=== PATIENT | male | born 2000 | race Caucasian/White ===

== ENCOUNTER 2024-08-07 16:43 | Emergency (ER) | payer OTHER, SELFPAY ==
[2024-08-07 17:10] VITALS: BP 156/88; PULSE 124; O2SAT 99
[2024-08-07 17:27] VITALS: BP 129/76; PULSE 111; RESP 18; TEMP 37.1; O2SAT 96; BMI 20.8
[2024-08-07 17:43] VITALS: RESP 18
--- NOTE | 2024-08-07 17:58 | ED.GENADULT ---
HPI - General Adult General Chief complaint: Psychiatric Symptoms Stated complaint: CRISIS EVAL, DELUSIONS, PARANOIA PER EMS Time Seen by Provider: 08/07/24 17:14 Source: patient, RN notes reviewed and old records reviewed Mode of arrival: EMS Limitations: no limitations History of Present Illness ED Provider: Mireille KHOURY narrative: 24-year-old male who denies any past medical history presents for evaluation of psychosis Patient reports that he took some THC edibles from a friend that he recently met. The patient states this was 3 days ago when he took the edibles. He states since doing the he has ?felt sick. ? The patient reports that he has had some paranoid thoughts about that individual he use the edibles with ?tracking my GPS. He reports that he has been having hallucinations He reports he has had a dry cough and a dry throat He denies any fevers or chills. The patient denies any history of psychiatric illness He denies any family history of schizophrenia The patient also admits that he use THC today that he got from a dispensary He denies any other substance abuse Related Data Home Medications ?Medication ?Instructions ?Recorded ?Confirmed No Known Home Meds 08/07/24 08/07/24 Allergies Allergy/AdvReac Type Severity Reaction Status Date / Time naproxen Allergy Itching Verified 08/07/24 17:39 Review of Systems Constitutional: Constitutional: Denies body ache(s), Denies chills, Denies fever(s) and Denies headache(s) Eyes: Eyes: Denies blurry vision ENT: Reports dry mouth and Denies headache(s) Cardiovascular: Cardiovascular: Denies chest pain and Denies dyspnea Respiratory: Respiratory: Reports cough and Denies dyspnea Gastrointestinal: Gastrointestinal: Denies abdominal pain, Denies nausea and Denies vomiting Musculoskeletal: Musculoskeletal: Denies back pain Integumentary/Breasts: Skin/Breast: Denies rash Neurologic: Denies headache(s) Psychiatric: Psychiatric: Reports anxiety, Denies depression, Reports auditory hallucinations, Reports paranoia, Reports visual hallucinations, Denies homicidal ideation and Denies suicidal ideation PMF Social History Social History Smoked in Last 30 Days: No Use of substances other than those prescribed or required for medical reasons: Yes Substance Use Type: Marijuana Advance Directives: No Advance Directives Information Provided: No Do you have a plan to hurt others: No Plan Physical Exam ED Vital Signs: Vital Signs - 24 hr 08/07/24 17:27 08/07/24 17:43 08/07/24 19:40 Temperature 98.7 F 97.7 F Pulse Rate 111 H 90 Respiratory Rate 18 18 14 Blood Pressure 129/76 104/58 L Pulse Oximetry 96 99 Oxygen Delivery Method Room Air Room Air BMI result Body Mass Index 20.8 Const General: healthy appearing, comfortable, no acute distress, alert and awake Nutritional Appearance: well nourished Orientation/consciousness: patient oriented x3 HENMT Head: Yes normocephalic and Yes atraumatic Throat: Yes posterior oropharynx normal Eyes Eyelids: Yes eyelids normal Conjunctivae: conjunctivae normal Sclerae: sclerae normal Corneas: corneas normal Pupils: Equal, round and reactive pupils present EOM: EOMs intact bilaterally Neck Neck: Yes full ROM Resp Effort & Inspection: normal respiratory effort, able to speak in complete sentences and not labored Cardio Rate: regular rate Rhythm: regular rhythm GI Inspection: No distended Palpation (GI): Soft to palpation, not firm, nontender, no guarding and not rigid Skin General skin exam: elasticity normal Neuro General: patient oriented x3 Cranial nerves: Yes Equal, round and reactive pupils present and Yes Bilaterally intact EOM present Cognition (Neuro): normal cognition Extrem Other: Moving all extremities well without any obvious deformities Course Reevaluation(s) Reevaluation #1: Patient is seen by the care team after a negative workup. He will be a bed search for inpatient psychiatric care Time: 20:33 Medical Decision Making Medical Decision Making [facility] Narrative: 24-year-old male presents for evaluation of acute onset of psychosis including hallucinations and paranoid thoughts. He is in the a new onset of schizophrenia. His symptoms also could be related to drug-induced psychosis. Plan for labs, tox screen. He will require a care team evaluation once medically cleared Differential Diagnosis Differential Diagnoses: The differential diagnosis associated with the presentation includes Psychosis Schizophrenia Drug-induced psychosis Schizoaffective disorder Bipolar disorder Lab Data [facility] Lab Attestation statement: I reviewed the patient's lab results. Mild leukocytosis with a left shift. This is likely related to substance abuse. The patient also has a very mild anemia with a hemoglobin of 13.3 and hematocrit 39.2. There is no obvious active bleeding. Chemistries without any significant abnormalities 08/07/24 18:21 08/07/24 18:21 Labs: Lab Results 08/07/24 08/07/24 Range/Units 18:21 18:43 WBC 13.2 H (4.8-10.8) X10*3/uL RBC 4.60 (4.60-5.80) X10*6/uL Hgb 13.3 L (14.0-18.0) g/dl Hct 39.2 L (42.0-52.0) % MCV 85.2 (80.0-98.0) fL MCH 28.9 (27.0-33.0) pg MCHC 33.9 (31.0-36.0) g/dl RDW 13.2 (11.0-16.0) % Plt Count 233 (160-400) X10*3/uL MPV 10.7 (9.4-12.4) fL Immature Gran % (Auto) 0.4 (0.0-0.4) % Neut % (Auto) 87.3 H (45-73) % Lymph % (Auto) 3.2 L (20-40) % [place] % (Auto) 8.8 (2-11) % Eos % (Auto) 0.0 (0-4) % Baso % (Auto) 0.3 (0-2) % Lymph # (Auto) 0.4 L (1.2-4.9) X10*3/uL [place] # (Auto) 1.2 (0.1-1.2) X10*3/uL Eos # (Auto) 0.0 (0.0-0.4) X10*3/uL Baso # (Auto) 0.0 (0.0-0.2) X10*3/uL Abs Immat Gran (auto) 0.05 H (0.00-0.03) X10*3/uL Absolute Neuts (auto) 11.6 H (2.0-8.3) x10*3/uL Absolute Nucleated RBC 0.000 (0.0-0.012) X10*3/uL Nucleated RBC % (auto) 0.0 (0.0-0.2) /100WBC Sodium 141 (135-145) mmol/L Potassium 4.5 (3.3-5.1) mmol/L Chloride 103 (96-108) mmol/L Carbon Dioxide 30 H (22-29) mmol/L Anion Gap 13 (12-20) BUN 7 L (9-16) mg/dL Creatinine 0.76 (0.5-1.4) mg/dL Estim Creat Clear Calc 140.6 Estimated GFR > 60 Random Glucose 110 (60-115) mg/dL Calcium 9.6 (8.4-10.2) mg/dL Total Bilirubin 0.5 (0.0-1.0) mg/dL AST 39 H (5-37) U/L ALT 34 (0-40) U/L Alkaline Phosphatase 101 (39-117) U/L Total Protein 7.3 (6.5-8.0) g/dL Albumin 4.5 (3.5-5.0) g/dL Salicylates < 5.0 L (15-30) mg/dL Urine Opiates Screen Not Detected (Not Detect) Ur Buprenorphine Scrn Not Detected (Not Detect) ng/mL Ur Oxycodone Screen Not Detected (Not Detect) ng/mL Urine Methadone Screen Not Detected (Not Detect) ng/mL Urine Fentanyl Screen Not Detected (Not Detect) Acetaminophen < 3 (<30) mcg/mL Ur Barbiturates Screen Not Detected (Not Detect) Ur Phencyclidine Scrn Not Detected (Not Detect) Ur Amphetamines Screen Not Detected (Not Detect) U Benzodiazepines Scrn Not Detected (Not Detect) Urine Cocaine Screen Not Detected (Not Detect) U Marijuana (THC) Screen POSITIVE H (Not Detect) Ethyl Alcohol < 10 mg/dL Influenza Type A (PCR) NEGATIVE (Negative) Influenza Type B (PCR) NEGATIVE (Negative) RSV RNA Qual (PCR) NEGATIVE (Negative) SARS-CoV-2 RNA (RT-PCR) NEGATIVE (Negative) S. pyogenes GrpA TRUPTI Negative (Negative) Discharge Plan Discharge Clinical Impression: Acute psychosis Patient Disposition: Still a Patient Prescriptions: No Action No Known Home Meds Interventions: [place]-Suicide Risk Severity Scale Last Done: 08/07/24 17:46 Print Language: Chinese
[2024-08-07 18:28] LABS: MANUAL DIFF FLAG NO
[2024-08-07 18:30] LABS: Basophils Percent Auto 0.3 % (0-2); Hematocrit 39.2 % (42.0-52.0); Hemoglobin 13.3 g/dl (14.0-18.0); Imm Gran Abs Auto 0.05 X10*3/uL (0.00-0.03); Imm Gran Pct Auto 0.4 % (0.0-0.4); Lymphocytes Absolute Auto 0.4 X10*3/uL (1.2-4.9); Lymphocytes Percent Auto 3.2 % (20-40); Mean Corpuscular HGB Conc 33.9 g/dl (31.0-36.0); Mean Corpuscular Hemoglobin 28.9 pg (27.0-33.0); Mean Corpuscular Volume 85.2 fL (80.0-98.0); Mean Platelet Volume 10.7 fL (9.4-12.4); Monocytes Absolute Auto 1.2 X10*3/uL (0.1-1.2); Monocytes Percent Auto 8.8 % (2-11); Neutrophils Absolute Auto 11.6 x10*3/uL (2.0-8.3); Neutrophils Percent Auto 87.3 % (45-73); Platelet Count 233 X10*3/uL (160-400); Red Cell Distribution Width 13.2 % (11.0-16.0); White Blood Count 13.2 X10*3/uL (4.8-10.8)
[2024-08-07 18:40] LABS: IDNOW Serial# 58CA691E; Strep A Nucleic Acid Negative (Negative)
[2024-08-07 18:50] LABS: Alanine Aminotransferase 34 U/L (0-40); Albumin Level 4.5 g/dL (3.5-5.0); Alkaline Phosphatase 101 U/L (39-117); Anion Gap 13 (12-20); Aspartate Amino Transferase 39 U/L (5-37); Bilirubin Total 0.5 mg/dL (0.0-1.0); Blood Urea Nitrogen 7 mg/dL (9-16); Calcium 9.6 mg/dL (8.4-10.2); Carbon Dioxide 30 mmol/L (22-29); Chloride 103 mmol/L (96-108); Creatinine Clr Calc Pharmacy 140.6; Estimated Glomerular Filt Rate > 60; Ethanol < 10 mg/dL; Glucose Random 110 mg/dL (60-115); Potassium 4.5 mmol/L (3.3-5.1); Sodium 141 mmol/L (135-145); Total Protein 7.3 g/dL (6.5-8.0)
[2024-08-07 18:56] LABS: Acetaminophen LAB < 3 mcg/mL (<30); Salicylate < 5.0 mg/dL (15-30)
[2024-08-07 19:07] LABS: Influenza A PCR NEGATIVE (Negative); Influenza B PCR NEGATIVE (Negative); Resp Syncy Virus RNA Qual PCR NEGATIVE (Negative); SARS COV2 PCR INHOUSE NEGATIVE (Negative)
[2024-08-07 19:07] LABS: Amphetamine Screen Urine Not Detected (Not Detect); Barbiturates, Urine Not Detected (Not Detect); Benzodiazepines Screen Urine Not Detected (Not Detect); Buprenorphine Scr Not Detected (Not Detect); Cannabinoid Screen Urine POSITIVE (Not Detect); Cocaine Screen Urine Not Detected (Not Detect); Fentanyl, urine Not Detected (Not Detect); Methadone Screen, Urine Not Detected (Not Detect); Opiate Screen Urine Not Detected (Not Detect); Oxycodone Screen Urine Not Detected (Not Detect); Phencyclidine Screen Urine Not Detected (Not Detect)
[2024-08-07 19:40] VITALS: BP 104/58; PULSE 90; RESP 14; TEMP 36.5; O2SAT 99
--- NOTE | 2024-08-07 19:45 | PC.NURSE ---
Assumed care for pt at 1900. Pt is aox4 resting at the bedside. VSS. Reports headache, 02/09. Declines Tylenol and Ibuprofen at this time. Ice water provided. Pt reports VH/AH earlier today after consuming edibles. Denies SI/HI/VH/AH at this time. Monitoring is ongoing.
--- NOTE | 2024-08-07 23:29 | PC.NURSE ---
Pt awake and alert, sitting at the bedside. No apparent distress noted. Reports headache, 12/10. Medicated with Tylenol. Monitoring is ongoing.
[2024-08-07] MEDS: Acetaminophen 325 MG TABLET 650 MG PO (23:31)
[2024-08-08 07:25] VITALS: BP 119/68; PULSE 80; RESP 18; TEMP 37.1; O2SAT 99
--- NOTE | 2024-08-08 10:54 | MHC.EDTECH ---
patient is in room patient is calm and awake, no distress shown.
[2024-08-08 16:38] VITALS: BP 134/64; PULSE 77; RESP 18; TEMP 37.1; O2SAT 96
--- NOTE | 2024-08-08 16:39 | MHC.EDTECH ---
patient in room calm did vitals and ask patient if he needed anything he said '' no thank you
--- NOTE | 2024-08-08 18:25 | MHC.EDTECH ---
Patient asked if he can shower,gave him fresh hospital clothes. I cleaned patient room and put fresh clean linen. patient is calm. Patient also requested some food.
--- NOTE | 2024-08-08 23:21 | PC.NURSE ---
Patient sleeping,resting comfortably at this time. RR even with chest rise and fall noted.
[2024-08-09 06:41] VITALS: RESP 16
[2024-08-09 10:21] VITALS: BP 118/69; PULSE 57; RESP 16; TEMP 36.8; O2SAT 99
[2024-08-09 11:51] VITALS: BP 118/69; PULSE 57; RESP 16; TEMP 36.8; O2SAT 99
== END 2024-08-09 11:53 | disposition home or self-care (01) ==
PROVIDERS: Physician Assistant; Emergency Provider Emergency Medicine Emergency Medical Services
DX: F23 Brief psychotic disorder (principal); F12.90 Cannabis use, unspecified, uncomplicated; Z03.818 Encounter for observation for suspected exposure to other biological agents ruled out; R05.9 Cough, unspecified
CPT/HCPCS: 0241U; 36415; 80053; 80143; 80179; 80307; 85025; 87651; 99285; S9485